=== PATIENT | male | born 1980 | race Two or more races ===

== ENCOUNTER 2021-03-10 11:58 | Outpatient (REF) | payer MEDICAID, OTHER, SELFPAY ==
--- NOTE | ~2021-03-10 | XR_ITS ---
EXAMINATION: XR KNEE, RIGHT CLINICAL INFORMATION: Right knee pain, effusion. COMPARISON: None TECHNIQUE: Four views of the right knee. FINDINGS: The tricompartment joint space is maintained normal. There is moderate suprapatellar joint effusion. No acute fracture, dislocation seen. There are no loose bodies. XR/XR knee RT 4V IMPRESSION: Moderate suprapatellar joint effusion. Otherwise unremarkable right knee exam.
== END 2021-03-10 11:59 | disposition home or self-care (01) ==
LOC: HO.XRAY 11:58
PROVIDERS: PCP Nurse Practitioner; Visit Provider Student in an Organized Health Care Education/Training Program
DX: M25.461 Effusion, right knee (principal)
CPT/HCPCS: 73564

== ENCOUNTER 2022-06-21 15:15 | Outpatient (REF) | payer MEDICAID, OTHER, SELFPAY ==
--- NOTE | ~2022-06-21 | XR_ITS ---
EXAMINATION: XR HIP, RIGHT CLINICAL INFORMATION: Right hip pain COMPARISON: None TECHNIQUE: 3 views of the right hip. FINDINGS: Normal bony mineralization. No fracture, dislocation, destructive process, or hip arthropathy. No erosive changes or visible chondrocalcinosis. XR/XR hip RT min 2V IMPRESSION: Unremarkable right hip.
== END 2022-06-21 15:16 | disposition home or self-care (01) ==
LOC: HO.XRAY 15:15
PROVIDERS: PCP Family Medicine; Visit Provider Family Medicine
DX: M25.561 Pain in right knee (principal)
CPT/HCPCS: 73502

== ENCOUNTER 2022-06-22 11:58 | Outpatient (REF) | payer MEDICAID, OTHER, SELFPAY ==
--- NOTE | ~2022-06-22 | XR_ITS ---
EXAMINATION: XR KNEE, RIGHT CLINICAL INFORMATION: Chronic pain COMPARISON: 03/10/2021 TECHNIQUE: Three views of the right knee. This includes upright AP and lateral views. FINDINGS: No acute fracture or subluxation. Compartmental joint spaces are maintained. Small joint effusion. The soft tissues are unremarkable. XR/XR knee RT 3V IMPRESSION: Small joint effusion. Otherwise unremarkable appearance of the right knee.
--- NOTE | ~2022-06-22 | XR_ITS ---
EXAMINATION: XR SHOULDER, RIGHT CLINICAL INFORMATION: Chronic pain COMPARISON: None TECHNIQUE: Four views of the right shoulder. FINDINGS: No fracture or dislocation. The glenohumeral joint is well aligned. The joint space is maintained. The acromioclavicular joint is intact. The visualized lung is clear. The visualized ribs are intact. XR/XR shoulder RT min 2V IMPRESSION: Normal right shoulder.
--- NOTE | ~2022-06-22 | XR_ITS ---
EXAMINATION: XR HIP, RIGHT CLINICAL INFORMATION: Chronic pain COMPARISON: 06/21/2022 TECHNIQUE: Two views of the right hip. FINDINGS: No fracture or dislocation. The hip is well aligned. The joint space is maintained. The visualized right hemipelvis is intact. Normal bowel gas pattern. XR/XR hip RT min 2V IMPRESSION: Normal right hip.
== END 2022-06-22 11:59 | disposition home or self-care (01) ==
LOC: HO.XRAY 11:58
PROVIDERS: PCP Family Medicine; Visit Provider Family Medicine
DX: M25.561 Pain in right knee (principal); M25.551 Pain in right hip; M25.511 Pain in right shoulder; G89.29 Other chronic pain
CPT/HCPCS: 73030; 73502; 73562

== ENCOUNTER 2024-02-18 08:09 | Outpatient (REF) | payer MEDICAID, OTHER, SELFPAY ==
[2024-02-18 12:19] LABS: Estimated Average Glucose 100 mg/dL; Hemoglobin A1c % 5.1 % (<6.0)
[2024-02-18 12:38] LABS: HBS Num1 0.48 mIU/mL (0-7.99); HBc Num1 0.13 S/CO (0.00-0.79); Hepatitis A Antibody IgM 0.33 Index (0-0.79); Hepatitis B Core Antibody Nonreactive (Nonreactive); Hepatitis B Surface Antigen Negative (Negative); ~HepC Num1 0.11 S/CO (0.00-0.79); ~Hepatitis A Antibody IgM Nonreactive (Nonreactive); ~Hepatitis B Surface Antibody NONREACTIVE (Nonreactive); ~Hepatitis C Antibody Nonreactive (Nonreactive)
[2024-02-18 12:45] LABS: Alanine Aminotransferase 26 U/L (0-40); Albumin Level 4.4 g/dL (3.5-5.0); Alkaline Phosphatase 75 U/L (39-117); Anion Gap 9 (12-20); Aspartate Amino Transferase 20 U/L (5-37); Bilirubin Total 0.5 mg/dL (0.0-1.0); Blood Urea Nitrogen 19 mg/dL (9-16); Calcium 9.1 mg/dL (8.4-10.2); Carbon Dioxide 28 mmol/L (22-29); Chloride 104 mmol/L (96-108); Cholesterol 198 mg/dL (<200); Estimated Glomerular Filt Rate > 60; Glucose Random 100 mg/dL (60-115); HDL Cholesterol 47 mg/dL (>40); LDL Cholesterol Calculated 117 mg/dL (<100); Potassium 4.4 mmol/L (3.3-5.1); Sodium 137 mmol/L (135-145); TSH reflex Free T4 4.53 uIU/mL (0.32-4.0); Total Protein 7.8 g/dL (6.5-8.0); Triglycerides 174 mg/dL (<150)
[2024-02-18 13:25] LABS: Free T4 (Free Thyroxine) 0.95 ng/dL (0.71-1.85)
[2024-02-19 14:39] LABS: Follicle Stimulating Hormone 2.9 mIU/mL (1.4-12.8); Lutenizing Hormone 4.2 mIU/mL (1.5-9.3)
== END 2024-02-18 08:10 | disposition home or self-care (01) ==
LOC: HO.HHCL 08:09
PROVIDERS: Visit Provider Registered Nurse
DX: N52.9 Male erectile dysfunction, unspecified (principal); E78.2 Mixed hyperlipidemia
CPT/HCPCS: 36415; 80053; 80061; 83001; 83002; 83036; 84146; 84402; 84403; 84439; 84443; 86704; 86706; 86709; 86803; 87340

== ENCOUNTER 2024-06-15 08:11 | Outpatient (REF) | payer MEDICAID, OTHER, SELFPAY ==
[2024-06-15 12:25] LABS: Prostate Specific Antigen 0.54 ng/mL (<0.05-4.0)
[2024-06-15 12:31] LABS: Free T4 (Free Thyroxine) 0.84 ng/dL (0.71-1.85); TSH reflex Free T4 3.07 uIU/mL (0.32-4.0); Thyroid Stimulating Hormone 3.07 uIU/mL (0.32-4.0)
[2024-06-16 13:07] LABS: Thyroglobulin Antibodies <1 IU/mL (< or = 1)
[2024-06-19 17:53] LABS: Testosterone, Total 335 ng/dL (250-1100)
== END 2024-06-15 08:12 | disposition home or self-care (01) ==
LOC: HO.HHCL 08:11
PROVIDERS: Visit Provider Registered Nurse
DX: R79.89 Other specified abnormal findings of blood chemistry (principal); E03.8 Other specified hypothyroidism; N52.9 Male erectile dysfunction, unspecified
CPT/HCPCS: 36415; 84153; 84403; 84439; 84443; 86800

== ENCOUNTER 2024-06-23 06:15 | Outpatient (REF) | payer MEDICAID, OTHER, SELFPAY ==
--- NOTE | 2024-06-23 | EMG_ITS ---
Right median and ulnar motor and sensory studies were performed. Right radial and median and lateral antecubital brachial sensory studies were performed, and paraspinal muscles were tested with a needle. IMPRESSION: Mild to moderate right median neuropathy across carpal tunnel. MD ANGELICA Pierre/MARCUS / [phone]
== END 2024-06-23 06:16 | disposition home or self-care (01) ==
LOC: HO.NEURO 06:15
PROVIDERS: PCP Family Medicine; Visit Provider Registered Nurse
DX: R20.0 Anesthesia of skin (principal); R20.2 Paresthesia of skin
CPT/HCPCS: 95886; 95910

== ENCOUNTER 2024-10-01 10:55 | Outpatient (REF) | payer MEDICAID, OTHER, SELFPAY ==
--- NOTE | ~2024-10-01 | XR_ITS ---
EXAMINATION: XR HAND, RIGHT CLINICAL INFORMATION: PAIN COMPARISON: None available. TECHNIQUE: PA, lateral, and oblique views of the right hand. FINDINGS: No fracture, dislocation, or suspicious bone lesion. Normal bone mineralization. Normal alignment. Joint spaces are preserved. No significant arthropathy. Soft tissues appear normal. XR/XR hand RT min 3V IMPRESSION: Normal right hand. Electronically signed by: Noah Santamaria MD 10/01/2024 12:43 PM EDT
--- OUTSIDE RECORDS SUMMARY | 2024-10-01 14:28 | XMS_ITS | Encounter Summary ---
Author Organization [employer] Address [address] [place] [address] [address] [place] [address] Care Team Providers Care Flight Engineer Instructor Name Role Phone Gracie Pizarro Primary Care Provider Encounter Details Date Type Department Care Team (Late st Contact Info) Description 09/24/2022 Abstract [facility] [address] [place] [address] Doron Lino DDS [address] [place], [place] [phone] Social History Tobacco Use Types Packs/Day Years Used Date Smoking Tobacco: Some Days Cigars Passive Smoke Exposure: Current Smokeless Tobacco: Never Alcohol Use Standard Drinks/Week Comments Never 0 (1 standard drink = 0.6 oz pur e alcohol) Sex and Gender Information Value Date Recorded Sex Assigned at Male 05/07/2022 10:39 AM EDT Legal Sex Male 10:39 AM EDT Gender Identity Male 05/07/2022 10:39 AM EDT Sexual Orientation Straight 05/07/2022 10 :39 AM EDT COVID-19 Exposure Response Date Recorded In the last 10 days, have yo u been in contact with someone who was confirmed or suspected to have Coronavirus/COVID-19? No / Unsure 09/21/2022 1:28 PM EDT documented as of this encounter Plan of Treatment Upcoming Encounters Date Type Department Care Team (Late Contact Info) Description 10/23/2024 9:00 AM EDT Office Visit [facility] [address] [place], [place] [phone] Gracie Pizarro PLANT PROTECTION GUARD [address] [place] [address] documented as of this encounter Visit Diagnoses Not on filedocumented in this encounter Care Teams Flight Engineer Instructor Relationship Specialty Start Date End Date Gracie Pizarro FNP [address] [place] [id number] PCP - General Family Medicine 03/02/22 documented as of this encounter
--- OUTSIDE RECORDS SUMMARY | 2024-10-01 14:28 | XMS_ITS | Clinical Summary ---
Author Organization [facility] Address [address] [place] [address] Care Team Providers Care Emergency Vehicle Operations Instructor Name Role Phone Farrah Santana Primary Care Provider [phone] Allergies No known active allergies Medications No known medications Active Problems No known active problems Social History Tobacco Use Types Packs/Day Years Used Date Smoking Tobacco: Never Assessed Sex and Gender Information Value Date Recorded Sex Assigned at Male 06/23/2024 11:52 AM EST Legal Sex Male 9:46 AM EDT Gender Identity Male 06/23/2024 11:52 AM EST Sexual Orientation Not on file Plan of Treatment Upcoming Encounters Date Type Department Care Team (Late st Contact Info) Description 12/10/2024 2:00 PM EDT Office Visit [facility] [address] [place] [address] Lead Etl Developer: Claudio Bailey NP [address] [place] [address] Health Maintenance Due Date Last Done Comments HIV Screening 1980 Hepatitis C Screening 1980 Varicella Vaccines (1 of 2 - 13+ 2-dose series) 12/12/1992 Hepatitis B Vaccines (1 of 3 - 19+ 3-dose series) 12/12/1998 COVID-19 Vaccine (2023-2 5 season) 2024 Influenza Vaccine (#1) 2024 Alcohol/Substance Use Screening 07/08/2024 Depression Screening and Follow-Up 07/08/2024 Social Drivers of Health Velma ual Screening 07/08/2024 DTaP,Tdap,and Td Vaccines (2 - Td or Tdap) 09/03/2032 09/03/2022 RSV Vaccine (60+ years old a nd patients) (1 - 1-dose 75+ series) 12/12/2054 Pneumococcal Vaccine: Pediat donn (0-5 Years) and At-Risk Patients (6-50 Years) Aged Out No longer eligible b ased on patient's age to complete this topic Insurance [facility] HSNO/FREE CARE Care Teams Emergency Vehicle Operations Instructor Relationship Specialty Start Date End Date Farrah Santana [address] [place] [id number] PCP - General Family Medicine 03/22/21
--- OUTSIDE RECORDS SUMMARY | 2024-10-01 14:28 | XMS_ITS | Encounter Summary ---
Author Organization [employer] Address [address] [place] [address] Care Team Providers Care Medical Oncology Physician Name Role Phone Gracie Pizarro DIRECTOR SOCIAL WELFARE Primary Care Provider [phone] Encounter Details Date Type Department Care Team ([facility] st Contact Info) Description 10/01/2024 9:25 AM EDT Nurse Only [facility] [address] [place] [phone] Lorna Moore LPN Encounter for immunization (Primary Dx) Social History Tobacco Use Types Packs/Day Years Used Date Smoking Tobacco: Some Days Cigars Passive Smoke Exposure: Current Smokeless Tobacco: Never Alcohol Use Standard Drinks/Week Comments Never 0 (1 standard drink = 0.6 oz pur e alcohol) Depression Answer Date Recorded Patient Health Questionnaire-9 Score 0 06/08/2024 Patient Health Questionnaire-9 Score 0 06/08/2024 Last PHQ-9: Questionnaire Data Not on file 1 08/09/2023 Housing Stability Answer Date Recorded What is your housing situation today? I have melanie yepez 12/18/[address] you li ve. Do you have problems with any of the following? None of the above 12/18/2023 Food Insecurity Answer Date Recorded Within the past 12 months, y ou worried that your food would run out before you got money to buy more: Never True 12/18/2023 Within the past 12 months,th e food you bought just didn't last and you didn't have enough money to get more: Never True 06/2024 Transportation Answer Date Recorded In the past 12 months, has l ack of transportation kept you from medical appts, meetings, work or from getting things needed for daily living? No 12/18/2023 Utilities Answer Date Recorded In the past 12 months, has t he electric, gas, oil or water company threatened to shut off services in your home? No 12/18/2023 Depression Answer Date Recorded Patient Health Questionnaire-2 Score 0 06/08/2024 Sex and Gender Information Value Date Recorded Sex Assigned at Male 05/07/2022 10:39 AM EDT Legal Sex Male 10:39 AM EDT Gender Identity Male 05/07/2022 10:39 AM EDT Sexual Orientation Straight 05/07/2022 10 :39 AM EDT documented as of this encounter Progress Notes * Lorna Moore LPN - 10/01/2024 9:25 AM EDT Subjective Patient ID: Ty Bertrand is a 43 y.o. male who presentsPt here for 3rd , of 3 dose series, Engerix, Hepatitis B, Vaccine. Patient history and self attestation indicate no contraindication to vaccination. Pt advised of possible side effects of vaccine including fever, headache and fatigue and advised to stay for 15 minutes monitoring post-vaccine. Pt states understanding and agrees to vaccination. documented in this encounter Plan of Treatment Upcoming Encounters Date Type Department Care Team (Late st Contact Info) Description 10/23/2024 9:00 AM EDT Office Visit [facility] [address] [place] [address] Gracie Pizarro FNP [address] [place] [address] documented as of this encounter Visit Diagnoses Diagnosis Encounter for immunization- Primary documented in this encounter Additional Health Concerns Assessment Noted Time PHQ-9 Depression Total Score: 0 06/08/20 24 10:11 AM EST documented as of this encounter Care Teams Medical Oncology Physician Relationship Specialty Start Date End Date Gracie Pizarro FNP [address] [place] [address] PCP - General Family Medicine 03/02/22 documented as of this encounter
--- OUTSIDE RECORDS SUMMARY | 2024-10-01 14:28 | XMS_ITS | Referral Summary ---
Author Organization [facility] Address [address] [place] [address] Care Team Providers Care Disk Recoater Name Role Phone Farrah Santana Primary Care Provider [phone] Allergies No known active allergies Medications No [...] Description 12/10/2024 2:00 PM EDT Office Visit [facility] [address] [place] [address] Order Control Clerk Blood Bank: Lenora Westbrook, Claudio Abraham NP [address] [place] [address] [facility] Care Teams Disk Recoater Relationship Specialty Start Date End Date Farrah Santana [address] [place] [phone] PCP - General Family Medicine 03/22/21
--- OUTSIDE RECORDS SUMMARY | 2024-10-01 14:28 | XMS_ITS | Encounter Summary ---
Author Organization [employer] Address [address] [place] [address] Care Team Providers Care Medical Office Coordinator Name Role Phone Gracie Pizarro MANAGER CALL CENTER Primary Care Provider [phone] Reason for Visit * Reason Comments Hand Pain Encounter Details Date Type Department Care Team ([facility] st Contact Info) Description 10/01/2024 10:40 AM EDT Office Visit [facility] [address] [place], [place] [phone] Breezy Hdz MD [address] [place], [place] [phone] Chronic pain of right thumb (Primary Dx) Social History Tobacco Use Types [...] AM EDT documented as of this encounter Last Filed Vital Signs Vital Sign Reading Time Taken Comments Blood Pressure 116/75 10/01/2024 10:06 AM EDT Pulse 69 10/01/2024 10:06 AM EDT Temperature 36.8 ??C (98.2 ??F) 10/01/2024 10:06 AM E DT Respiratory Rate 16 10/01/2024 10:06 AM EDT Oxygen Saturation 98% 10/01/2024 10:06 AM EDT Inhaled Oxygen Concentration - - Weight 74.8 kg (165 lb) 10/01/2024 10:06 AM EDT Height - - Body Mass Index 30.97 06/08/2024 10:06 AM EST documented in this encounter Progress Notes * Breezy Hdz MD - 10/01/2024 10:40 AM EDT Subjective History was provided by the patient. Ty Bertrand is a 43 y.o. 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 He is right-hand dominant. Pain is mostly in the thumb and 1st metacarpal area. Denies F/C. Objective Vitals: 10/01/24 1006 BP: 116/75 BP Location: Left arm Patient Position: Sitting BP Cuff Size: Adult Pulse: 69 Resp: 16 Temp: 98.2 ??F (36.8 ??C) TempSrc: Temporal SpO2: 98% Weight: 165 lb (74.8 kg) Physical Exam Vitals reviewed. Constitutional: Appearance: Normal appearance. HENT: Head: Normocephalic and atraumatic. Right Ear: External ear normal. Left Ear: External ear normal. Nose: Nose normal. Mouth/Throat: Pharynx: Oropharynx is clear. Eyes: Extraocular Movements: Extraocular movements intact. Conjunctiva/sclera: Conjunctivae normal. Pulmonary: Effort: Pulmonary effort is normal. Musculoskeletal: General: Tenderness present. No swelling, deformity or signs of injury. Normal range of motion. Cervical back: Neck supple. Comments: Tenderness of the right thumb and first metacarpal in the palmar aspect; no wrist involvement; negative Omar test Skin: General: Skin is warm and dry. Neurological: Mental Status: He is alert and oriented to person, place, and time. Psychiatric: Mood and Affect: Mood normal. Behavior: Behavior normal. Thought Content: Thought content normal. Judgment: Judgment normal. Ty was seen today for hand pain. Diagnoses and all orders for this visit: Chronic pain of right thumb (Primary) - XR Hand 3+ Views Right; Future - predniSONE (Deltasone) 20 MG tablet; Take 2 tablets (40 mg) by mouth Once per day for 5 days. Patient presents to [facility] due to non-traumatic right thumb pain Works in construction No wrist involvement; negative Omar Suspect flexor tendinitis No deformity noted No clinical evidence of CTS No atrophy of thenar eminence Will check X-ray Discussed Rx Prednisone 40mg daily for 5 days Potential adverse effects of the medication reviewed Indications for UC/ER use reviewed Advised to contact the clinic if persistent or worsening symptoms documented in this encounter Plan of Treatment Upcoming Encounters Date Type Department Care Team (Late st Contact Info) Description 10/23/2024 9:00 AM EDT Office Visit [facility] [address] [place], [place] [phone] [place] F[place] [address] [place], [place] [phone] documented as of this encounter Procedures Procedure Name Priority Date/Time Associated Diagnosis Comments XR HAND 3+ VIEWS RIGHT Routine 10/01/2024 10:56 AM EDT Chronic pain of right thumb documented in this encounter Results * XR Hand 3+ Views Right (10/01/2024 10:56 AM EDT) Anatomical Region Laterality Modality Upper Extremities, Hand Right Radiogra phic Imaging 10/01/2024 10:5 6 AM EDT Narrative 10/01/2024 12:46 PM EDT ?[facility] ?[address] ?[place] [address] ?XRay Report ? Signed ? Patient: Ty Henson ?MR#: [id number] ?? [id number] ? : 1980 ?Acct:[id number] ? Age/Sex: 43 / M ?ADM Date: 10/01/24 ? Loc: HO.HHCX ? Attending Dr: Breezy Hdz MD ? Ordering Physician: Breezy Hdz MD ?? Date of Service: 10/01/24 ?? Procedure(s): XR hand RT min 3V ?? Accession Number(s): [id number] ? cc: Breezy Hdz MD ? EXAMINATION: ?? XR HAND, RIGHT ? CLINICAL INFORMATION: ?? PAIN ? COMPARISON: ?? None available. ? TECHNIQUE: ?? PA, lateral, and oblique views of the right hand. ? FINDINGS: ?? No fracture, dislocation, or suspicious bone lesion. Normal bone ?? mineralization. ?? Normal alignment. ?? Joint spaces are preserved. No significant arthropathy. ? Soft tissues appear normal. ? XR/XR hand RT min 3V ?? IMPRESSION: ?? Normal right hand. ? Electronically signed by: ??Noah Santamaria MD ??10/01/2024 12:43 PM EDT RP ? Dictated By: ?Noah Santamaria MD ? Signed By: ?<Electronically signed by Noah Santamaria MD in OV> ?10/01/24 1243 ? DD/ 1056 ? TD/TT: 10/01/24 1100 ? Interventional Technologist: ? Procedure Note Davian Patino - 10/01/2024 [facility] [address] [place] [address] XRay Report Signed Patient: Haley Henson#: [id number] : 1980Acct:[id number] Age/Sex: 43 / MADM Date: 10/01/24 Loc: HO.HHCX Attending Dr: Breezy Hdz MD Ordering Physician: Breezy Hdz MD Date of Service: 10/01/24 Procedure(s): XR hand RT min 3V Accession Number(s): [id number] cc: Breezy Hdz MD EXAMINATION: XR HAND, RIGHT CLINICAL INFORMATION: PAIN COMPARISON: None available. TECHNIQUE: PA, lateral, and oblique views of the right hand. FINDINGS: No fracture, dislocation, or suspicious bone lesion. Normal bone mineralization. Normal alignment. Joint spaces are preserved. No significant arthropathy. Soft tissues appear normal. XR/XR hand RT min 3V IMPRESSION: Normal right hand. Electronically signed by: Noah Santamaria MD 10/01/2024 12:43 PM EDT Dictated By: Noah Santamaria MD Signed By: <Electronically signed by Noah Santamaria MD in OV> 10/01/24 1243 DD/ 1056 TD/TT: 10/01/24 1100 Interventional Technologist: Breezy Hdz MD IMG XR PROCEDURES Final Result documented in this encounter Visit Diagnoses Diagnosis Chronic pain of right thumb- Primary documented in this encounter Additional Health Concerns Assessment Noted Time PHQ-9 Depression Total Score: 0 06/08/20 24 10:11 AM EST documented as of this encounter Care Teams Medical Office Coordinator Relationship Specialty Start Date End Date [place] F[place] [address] [place] [address] PCP - General Family Medicine 03/02/22 documented as of this encounter
--- OUTSIDE RECORDS SUMMARY | 2024-10-01 14:28 | XMS_ITS | Clinical Summary ---
Author Organization [employer] Address [address] [place] [address] [address] [place] [address] Care Team Providers Care Senior Maintenance Mechanic Name Role Phone Gracie Pizarro [facility] Primary Care Provider [phone] Allergies No known active allergies Medications Diclofenac Sodium 1 % gel Apply 2 g topically every 6 (six) hours. 1 Active amoxicillin (Amoxil) 500 MG capsuleIndicatio ns:Dental calculus,Dental abscess,Halitosi s Take 1 capsule (500 mg) by mouth every 8 (eight) hours. 30 capsule 3 Active Additional Information Patient not taking.Reported on 06/08/2024 sildenafil (Viagra) 100 MG tabletIndication s:Erectile dysfunction, unspecified erectile dysfunction type Take 1 tablet (100 mg) by mouth if needed each day for erectile dysfunction. 30 tablet 2 4 02/14/20 25 Active predniSONE (Deltasone) 20 MG tabletIndication s:Chronic pain of right thumb Take 2 tablets (40 mg) by mouth Once per day for 5 days. 10 tablet 5 10/07/19 25 Active Active Problems Problem Noted Date Diagnosed Date Hyperlipidemia 09/03/2022 Overview (09/03/2022): ?? ASCVD: 2.2% 07/2022, statin therapy not indicated Assessment & Plan (09/03/2022 2:45 PM EST): ?? Encouraged lifestyle recommendations ?? Will continue to monitor Periodontal disease 08/31/2022 Erectile dysfunction 05/02/2021 Overview (09/03/2022): ?? Erectile dysfunction x 1 year; difficulty achieving and sustaining erection during intercourse. Wakes with morning erection. ?? Labs- testosterone, a1c, TSH all WNL ?? Sildenafil 50mg Assessment & Plan (09/03/2022 2:52 PM EST): ?? Continue current sildenafil use ?? Contact [facility] if sx no longer respond to treatment. Will plan referral to urology at this time Resolved Problems Problem Noted Date Diagnosed Date Resolved Date Dental calculus 08/31/2022 09/03/2022 Gingival bleeding 08/31/2022 09/03/2022 Halitosis 08/31/2022 09/03/2022 Acute gingival inflammation 08/31/2022 09/03/2022 Dental abscess 08/31/2022 09/03/2022 Multiple joint pain 06/21/2022 09/03/19 Assessment & Plan (06/21/2022 2:22 PM EST): Patient with R sided shoulder internal rotation pain, normal passive & active ROM. R SI joint dysfunction, + FADIR/+CASANDRA, neg SLR R knee with lateral small effusion and tenderness in lateral joint line, stable knee, + crepitus Xray sents Recommended RICE RX diclofenac RTC with PCP if no improvement Chronic pain of right knee 05/02/2021 0 09/03/2022 Encounters Date Type Department Care Team Description 10/01/2024 10:40 AM EDT Office Visit [facility] [address] [place] [id number] Breezy Hdz MD Chronic pain of right thumb (Primary Dx) 10/01/2024 9:25 AM EDT Nurse Only [facility] [address] [place] [address] [phone] Lorna Moore LPN Encounter for immunization (Primary Dx) from Last 3 Months Immunizations Name Administration Dates Next Due Hep B, adult 10/01/2024,05/04/2024,04/02/2024 Tdap 09/03/2022 Family History Medical History Relation Name Comments Hereditary non-polyposis colon cancer Neg Hx Social History Tobacco Use Types Packs/Day Years Used Date Smoking Tobacco: Some Days Cigars Passive Smoke Exposure: Current Smokeless Tobacco: Never Tobacco Cessation:Ready to Q uit: Not Asked; Counseling Given: Not Answered Alcohol Use Standard Drinks/Week Comments Never 0 [...] Orientation Straight 05/07/2022 10 :39 AM EDT Last Filed Vital Signs Vital Sign Reading Time Taken Comments Blood Pressure 116/75 10/01/2024 10:06 AM EDT Pulse 69 10/01/2024 10:06 AM EDT Temperature 36.8 ??C (98.2 ??F) 10/01/2024 10:06 AM E DT Respiratory Rate 16 10/01/2024 10:06 AM EDT Oxygen Saturation 98% 10/01/2024 10:06 AM EDT Inhaled Oxygen Concentration - - Weight 74.8 kg (165 lb) 10/01/2024 10:06 AM EDT Height 155.4 cm (5' 1.2 ) 06/08/2024 10:06 AM ES T Body Mass Index 30.97 06/08/2024 10:06 AM EST Plan of Treatment Upcoming Encounters Date Type Department Care Team (Late st Contact Info) Description 10/23/2024 9:00 AM EDT Office Visit [facility] [address] [place] [address] [place], [place], [facility] [address] [place] [address] Health Maintenance Due Date Last Done Comments Family Planning (PISQ) 12/12/1994 Pneumococcal Vaccine: Pediatrics (0 to 5 Years) and At-Risk Patients (6 to 49) Years) (1 of 2 - PCV) 12/12/1998 Dental Oral Exam 02/01/2023 08/03/2022 Dental Prophylaxis 03/01/2023 08/31/2022 Dental X-Ray: Bitewings 08/04/2023 08/03/2022 COVID-19 Vaccine ( - 2023-2 5 season) 2024 Influenza Vaccine (#1) 2024 Alcohol/Substance Use Screening 12/17/2024 12/18/2023 SDOH Screening 12/17/2024 12/18/2023 Depression Screening 06/08/2025 06/08/2024, 06/08/2024 Tobacco Screening 06/16/2025 06/16/2024 Dental X-Ray: Full Mouth 08/04/2025 08/03/2022 Lipid Panel 02/17/2029 02/18/2024, 07/18/2022, 05/02/2021 Zoster Vaccines (1 of 2) 12/12/2029 DTaP/Tdap/Td Vaccines (2 - T d or Tdap) 09/03/2032 09/03/2022 RSV Patients and Patients Aged 60 years or older (1 - 1-dose 75+ series) 12/12/2054 HIV Screening Completed 05/02/2021 Hepatitis C Screening Completed 02/18/2024 , 05/02/2021 Hepatitis B Vaccines Completed 10/01/2024, 05/04/2024, 04/02/2024 HIB Vaccines Aged Out No longer eligi ble based on patient's age to complete this topic HPV Vaccines Aged Out No longer eligi ble based on patient's age to complete this topic Hepatitis A Vaccines Aged Out No long er eligible based on patient's age to complete this topic IPV Vaccines Aged Out No longer eligi ble based on patient's age to complete this topic Meningococcal Vaccine Aged Out No ilda kate eligible based on patient's age to complete this topic RSV under 20 months Aged Out No longe r eligible based on patient's age to complete this topic Rotavirus Vaccines Aged Out No longer eligible based on patient's age to complete this topic Procedures Procedure Name Priority Date/Time Associated Diagnosis Comments XR HAND 3+ VIEWS RIGHT Routine 10/01/2024 10:56 AM EDT Chronic pain of right thumb HEPATITIS PANEL, GENERAL Routine 02/18/2024 8:12 AM EDT Erectile dysfunction, unspecified erectile dysfunction type LIPID PANEL, STANDARD Routine 02/18/2024 8:02 AM EDT Moderate mixed hyperlipidemia not requiring statin therapy PROPHYLAXIS - ADULT Routine 08/31/2022 2 :00 PM EST Periodontitis Dental calculus Gingival bleeding Halitosis Acute gingival inflammation Retained deciduous tooth INTRAORAL - COMPLETE SERIES OF RADIOGRAPHIC IMAGES Routine 08/03/2022 8:00 AM EST COMPREHENSIVE ORAL EVALUATION - NEW OR ESTABLISHED PATIENT Routine 08/03/2022 8:00 AM EST HIV 1/2 ANTIGEN/ANTIBODY, FOURTH GENERATION W/RFL Routine 05/02/2021 10:27 AM EDT from Last 3 Months or Most Recently Relevant to Health Maintenance Results * XR Hand 3+ Views Right (10/01/2024 10:56 AM EDT) Anatomical Region Laterality Modality Upper Extremities, Hand Right Radiogra phic Imaging 10/01/2024 10:5 6 AM EDT Narrative 10/01/2024 12:46 PM EDT ?[facility] ?[address] ?[place] [address] ?XRay Report ? Signed ? Patient: Clemens Elza,Ty ?MR#: [id number] ?? [id number] ? : 1980 ?Acct:[id number] ? Age/Sex: 43 / M ?ADM Date: 10/01/24 ? Loc: HO.HHCX ? Attending Dr: Breezy Hdz MD ? Ordering Physician: Breezy Hdz MD ?? Date of Service: 10/01/24 ?? Procedure(s): XR hand RT min 3V ?? Accession Number(s): [id number] ? cc: Breezy Hdz MD ? EXAMINATION: [...] DD/ 1056 ? TD/TT: 10/01/24 1100 ? Plastic Outfitter: ? Procedure Note Sukumar, Davian - 10/01/[address] [address] XRay Report Signed Patient: Haley Henson#: [id number] : 1980Acct:[id number] Age/Sex: 43 / MADM Date: 10/01/24 Loc: HO.HHCX Attending Dr: Breezy Hdz MD Ordering Physician: Breezy Hdz MD Date of Service: 10/01/24 Procedure(s): XR hand RT min 3V Accession Number(s): [id number] cc: Breezy Hdz MD EXAMINATION: XR HAND, [...] 10/01/24 1243 DD/ 1056 TD/TT: 10/01/24 1100 Plastic Outfitter: Breezy Hdz MD IMG XR PROCEDURES Final Result * Hepatitis Panel, General (02/18/2024 8:12 AM EDT) Hepatitis A IgM Nonreactive Nonreactive [facility] Comment:IgM antibodies to CHAKRABORTY V not detected; does not exclude earlyacute or recovered HAV infection. ~Hepatitis B Surface Antibody NONREACTIVE Nonreactive [facility] Comment:Nonreactive: < 8.00 mIU/mL Hepatitis B Core Antibody Nonreactive Nonreactive [facility] Hepatitis C Antibody Nonreactive Nonreactive [facility] Comment:Antibodies to HCV no t detected; does not exclude early acuteHCV infection. Hepatitis B Surface Ag Negative Negative [facility] Blood 02/18/2024 8:12 AM EDT 02/18/2024 11:26 AM EDT [facility] SEAT SCOOPER MACHINE LAB BLOOD ORDERABLES Final Re sult [facility] [address] [place] [address] [phone] * (ABNORMAL) Lipid Panel, Standard (02/18/2024 8:02 AM EDT) Triglycerides 174(H) <150 mg/dL [facility] Comment:Desirable Triglyceri de: less than 150 mg/dLBorderline High Triglyceride 150-199 mg/dLHigh Triglyceride: 200-499 mg/dLVery High Triglyceride: greater than or equal to 5OO mg/dL Cholesterol 198 <200 mg/dL [facility] Comment:Desirable Cholestero l: less than 200 mg/dLBorderline High Cholesterol: 200-239 mg/dLHigh Cholesterol: greater than 239 mg/dL LDL Cholesterol Calculated 117(H) <100 mg/dL [facility] Comment:Desirable LDL: less than 100 mg/dLNear Optimal/Above Optimal LDL: 110- 129 mg/dLBorderline High LDL: 130-159 mg/dLHigh LDL: 160-189 mg/dLVery High LDL: greater than or equal to 190 mg/dL HDL Cholesterol 47 >40 mg/dL [facility] Comment:Desirable HDL: great er than 40 mg/dL Note: This HDL assay may give artificially low results in patients with liver disease. Blood Venous blood specimen / Unknown 02/18/2024 8:02 AM EDT 02/18/2024 11:26 AM EDT [facility] SEAT SCOOPER MACHINE LAB BLOOD ORDERABLES Final Re sult [facility] [address], [place] [phone] * HIV 1/2 ANTIGEN/ANTIBODY,FOURTH GENERATION W/RFL (05/02/2021 10:27 AM EDT) HIV-1/2 ANTIGEN AND ANTIBODIES, 4TH GENERATION W/ REFLEX NON-REACT VICKI NON-REACT VICKI [facility] Comment: HIV-1 antigen and HIV-1/HIV-2 antibodies were not detected. There is no laboratory evidence of HIV infection. ?? PLEASE NOTE: This information has been disclosed to you from records whose confidentiality may be protected by state law. ??If your state requires such protection, then the state law prohibits you from making any further disclosure of the information without the specific written consent of the person to whom it pertains, or as otherwise permitted by law. A general authorization for the release of medical or other information is NOT sufficient for this purpose. ? For additional information please refer to http://education.questdiagnAtraverdas.Q Design/faq/SBZ464 (This link is being provided for informational/ educational purposes only.) ? The performance of this assay has not been clinically validated in patients less than 2 years old. ?? 05/02/2021 10:2 7 AM EDT us Miroslava Schmitz COST ACCOUNTING CLERK LAB BLOOD ORDERABLES Final Resu lt [facility] [address] from Last 3 Months or Most Recently Relevant to Health Maintenance Insurance [facility] FULL DENTAL-[facility] [employer] [facility] ADULT DENTAL - HSN FULL (MEDICAID) Care Teams Senior Maintenance Mechanic Relationship Specialty Start Date End Date Gracie Pizarro [place] [address] PCP - General Family Medicine 03/02/22
== END 2024-10-01 10:56 | disposition home or self-care (01) ==
LOC: HO.HHCX 10:55
PROVIDERS: Visit Provider Family Medicine
DX: M79.644 Pain in right finger(s) (principal); G89.29 Other chronic pain
CPT/HCPCS: 73130

== ENCOUNTER → 2024-10-01 10:56 | Outpatient (BNV) | payer MEDICAID, SELFPAY | PROVIDERS: Visit Provider Radiology Diagnostic Radiology | DX: M79.641 Pain in right hand (principal) | CPT/HCPCS: 73130 ==

== ENCOUNTER 2024-11-22 08:41 | Emergency (ER) | payer MEDICAID, OTHER, SELFPAY ==
[2024-11-22 08:42] VITALS: BP 128/62; PULSE 66; RESP 18; TEMP 36.2; O2SAT 97; BMI 39.2
--- NOTE | 2024-11-22 09:15 | ED.EYEPROB ---
HPI - Eye Problem General Chief complaint: Eye Problems Stated complaint: something in right eye Time Seen by Provider: 11/22/24 09:13 Source: patient Mode of arrival: ambulatory Limitations: no limitations History of Present Illness ED Provider: Opal Boone NP HPI Narrative: patient is a 43 year old male who presents emergency department for evaluation. He endorses pain and a foreign body sensation to the right lower outer eye over the past 3 days. He admits that prior to the onset he was doing some gardening, drilling into some concrete that had old metal present and believes that either piece of concrete or metal had come up and got stuck into his eye. He is having excessive tearing, and blurry vision to the right eye. Has associated photophobia. He denies any purulent discharge. Denies use of contact lenses. Denies any posterior eye pain or pressure, no headaches, no nausea, no vomiting. Reports tetanus vaccination being up-to-date within the past 5 years Related Data Previous Rx's ?Medication ?Instructions ?Recorded ofloxacin 0.3 % eye drops 2 drp ophthalmic (eye) QID #10 mL 11/22/24 Allergies Allergy/AdvReac Type Severity Reaction Status Date / Time No Known Allergies Allergy Verified 11/22/24 08:44 Review of Systems Review of Systems: Yes all other systems are reviewed and are negative PMFSH Past Medical History Attestation statement: The following information was validated with the patient. Source: old records reviewed Social History Social History Advance Directives: No Advance Directives Information Provided: Yes Physical Exam Vital Signs: Vital Signs: Last Vital Signs Temp 97.2 F 11/22/24 10:20 Pulse 66 11/22/24 10:20 Resp 18 11/22/24 10:20 BP 128/62 11/22/24 10:20 Pulse Ox 97 11/22/24 10:20 O2 Del Method Room Air 11/22/24 10:20 BMI result Body Mass Index 39.2 Appearance: Alert.?Oriented to person, place and time. No acute distress.?Normal affect. Eyes: Pupils equal, round and reactive to light.? EOMI. No nystagmus. Conjunctival erythema. Sclera injected. IOP: Left - 16.9, Right - 15.8. Visual acuity: Left - 20/40, Right - 20/70. Both 20/40. Fluorescein staining revealing fine area of uptake at 08:00. No chemosis. No hyphema. no visualized foreign body ENT: Pharynx normal.?? Neck: Normal inspection.? Neck supple.?? CVS: Heart sounds normal. Normal heart rate and rhythm.? Pulses normal.?? Respiratory: No respiratory distress.? Lung sounds clear to auscultation bilaterally?? Skin: Skin warm and dry.? Normal skin color.? Extremities: No lower extremity edema.? Neuro: Moves all extremities spontaneously. Sensation intact bilaterally. CN II-XII intact. No focal neuro deficits. Ambulates with normal steady gait. Medications Administered Discontinued Medications Generic Name Dose Route Start Last Admin Trade Name Tripq PRN Reason Stop Dose Admin Fluorescein Sodium 1 strip 11/22/24 09:19 11/22/24 09:53 Fluorescein Sodium Strip EYE-RIGHT 11/22/24 09:20 1 strip ONCE ONE Administration Tetracaine HCl 1 drop 11/22/24 09:19 11/22/24 09:53 Tetracaine Hcl/Pf 0.5% Oph Lexy 4 Ml Drops EYE-RIGHT 11/22/24 09:20 1 drop ONCE ONE Administration Medical Decision Making Medical Decision Making MDM Narrative: patient is a 43 old male who presents emergency department for evaluation of 3 days with right eye pain as per HPI, conjunctiva is erythematous sclera is injected, on fluorescein staining has uptake at 08:00 concerning for corneal abrasion. I do not see evidence of a retained foreign body despite lid eversion. No painful hordeolum or painless chalazion on examination. No subconjunctival hemorrhage. No associated unilateral headache, fixed pupil, associated vomiting, or increased intra-ocular pressure to suggest acute angle glaucoma. No periorbital edema erythema or warmth to suggest periorbital cellulitis, no painful EOMI to suggest orbital cellulitis. Not described as a severe constant boring pain worse at night in the morning, nonradiating, to suggest scleritis. No ciliary flushing or consensual photophobia to suggest uveitis/iritis. No history of penetrating injury or globe rupture additionally no hyphema. No painless acute loss of vision to suggest retinal detachment, vitreous detachment for hemorrhage. patient be discharged home with antibiotic eyedrops, outpatient follow-up with Ophthalmology and strict return precautions. All questions answered. Stable for discharge Differential Diagnosis Differential Diagnoses: The differential diagnosis associated with the presentation includes (See narrative above) External Record Review External record reviewed: Outpatient record Prescription Management I considered prescription management with: Antibiotic Discharge Plan Discharge Clinical Impression: Corneal abrasion Patient Disposition: Home, Self-Care Instructions: Corneal Abrasion (ED) Additional Instructions: on examination today you were found to have a corneal abrasion, a scratch along the surface of the eye was likely sustained from a foreign body has since been removed from the eye. There was no evidence of retained metal or concrete or any other identifiable body on examination. You are being given a prescription for antibiotic drops please complete the entire course. It is very important that you follow-up with an truck driver salesperson, you should contact the office tomorrow morning. I have provided contact information for the truck driver salesperson of his associated with our Hospital. Return to emergency department any new or worsening symptoms or concerns. Prescriptions: New ofloxacin 0.3 % drops 2 drp ophthalmic (eye) QID Qty: 10 0RF Referrals: Jakob Ayala [Physician] - Stand Alone Forms: Work/School Release Interventions: ED Discharge Assessment Last Done: 11/22/24 10:20 Discharge Date/Time: 11/22/24 10:26 Print Language: Estonian
[2024-11-22] MEDS: Tetracaine HCl/PF 0.5% Oph Sol 4 ML DROPS 1 DROP EYE-RIGHT (09:53)
[2024-11-22] MEDS: Fluorescein Sodium STRIP 1 STRIP EYE-RIGHT (09:53)
[2024-11-22 10:20] VITALS: BP 128/62; PULSE 66; RESP 18; TEMP 36.2; O2SAT 97
== END 2024-11-22 10:26 | disposition home or self-care (01) ==
LOC: HO.ED 10:25
PROVIDERS: Emergency Provider Emergency Medicine
DX: S05.01XA Injury of conjunctiva and corneal abrasion without foreign body, right eye, initial encounter (principal); W44.9XXA Unspecified foreign body entering into or through a natural orifice, initial encounter; H57.11 Ocular pain, right eye; Y93.9 Activity, unspecified; Y92.9 Unspecified place or not applicable; Y99.9 Unspecified external cause status
CPT/HCPCS: 99283; 99284

== ENCOUNTER 2025-06-28 13:09 | Outpatient (REF) | payer MEDICAID, OTHER, SELFPAY ==
--- NOTE | ~2025-06-28 | US_ITS ---
EXAMINATION: US SCROTUM HISTORY: 44 year old male with enlarging left scrotal mass. COMPARISON: There are no prior studies available for comparison. FINDINGS: Real-time grayscale ultrasound imaging of the scrotum was performed. RIGHT TESTICLE: The right testis measures 4.7 x 2.5 x 3.0 cm and demonstrates normal homogeneous echotexture. There is microlithiasis. No masses are seen. The right testis appears slightly hypervascular when compared to the left. RIGHT EPIDIDYMIS: Normal in size, shape, and vascularity. LEFT TESTICLE: The left testis measures 4.4 x 2.7 x 2.9 cm and demonstrates normal homogeneous echotexture. There is microlithiasis. No masses are seen. The left testis demonstrates normal color Doppler flow. LEFT EPIDIDYMIS: Normal in size, shape, and vascularity. VARICOCELE: None. HYDROCELE: There is a small right hydrocele and a large left hydrocele. OTHER COMMENTS: None. US/US scrotum IMPRESSION: 1. Small right hydrocele and large left hydrocele. 2. The right testis appears slightly hypervascular when compared to the left which may reflect orchitis. Electronically signed by: Khanh Flores MD 06/28/2025 01:59 PM EST
--- OUTSIDE RECORDS SUMMARY | 2025-06-28 16:33 | XMS_ITS | Encounter Summary ---
Author Organization [employer] Address [address] [place] [address] [address] [place] [address] Care Team Providers Care Pole Shaver Name Role Phone Gracie Pizarro BLISTER PACKAGING MACHINE OPERATOR Primary Care Provider Encounter Details Date Type Department Care Team (Late Contact Info) Description 09/24/2022 Abstract [facility] [address] [place] [address] Doron Lino DDS [address] [place] [address] Social History Tobacco Use Types Packs/Day Years [...] Care Team (Late st Contact Info) Description 10/21/2025 1:30 PM EDT Office Visit [facility] [address] [place] [address] Nallely Clark [address] [place] [address] documented as of this encounter Visit Diagnoses Not on filedocumented in this encounter Care Teams Pole Shaver Relationship Specialty Start Date End Date Gracie Pizarro FNP [address] [place] [address] PCP - General Family Medicine 03/02/22 documented as of this encounter
--- OUTSIDE RECORDS SUMMARY | 2025-06-28 16:33 | XMS_ITS | Clinical Summary ---
Author Organization [employer] Address [address] [place] [address] Care Team Providers Care Negative Assembler Name Role Phone Gracie Pizarro [facility] Primary Care Provider [phone] Allergies No known active allergies Medications Diclofenac Sodium 1 % gel Apply 2 g topically every 6 (six) hours. 1 Active sildenafil (Viagra) 100 MG tabletIndication s:Erectile dysfunction, unspecified erectile dysfunction type Take 1 tablet (100 mg) by mouth if needed each day for erectile dysfunction. 30 tablet 2 4 Active ibuprofen 600 MG tabletIndication s:Chronic pain of right thumb Take 1 tablet (600 mg) by mouth every 6 (six) hours if needed for mild pain. 30 tablet 1 5 Active prednisoLONE acetate (Pred-Forte) 1 % ophthalmic suspensionIndica tions:Foreign body of right cornea, subsequent encounter Administer 1 drop into the right eye 4 times daily. Shake before using 15 mL 5 Active Active Problems Problem Noted Date Diagnosed Date Hyperlipidemia 09/03/2022 Overview (09/03/2022): ASCVD: 2.2% 07/2022, statin therapy not indicated Assessment & Plan (09/03/2022 2:45 PM EST): Encouraged lifestyle recommendations Will continue to monitor Periodontal disease 08/31/2022 Erectile dysfunction 05/02/2021 Overview (09/03/2022): Erectile dysfunction x 1 year; difficulty achieving and sustaining erection during intercourse. Wakes with morning erection. Labs- testosterone, a1c, TSH all WNL Sildenafil 50mg Assessment & Plan (09/03/2022 2:52 PM EST): Continue current sildenafil use Contact HC if sx no longer respond to treatment. Will plan referral to urology at this time Resolved Problems Problem Noted Date Diagnosed Date Resolved Date Dental calculus 08/31/2022 09/03/2022 Gingival bleeding 08/31/2022 09/03/2022 Halitosis 08/31/2022 09/03/2022 Acute gingival inflammation 08/31/2022 09/03/2022 Dental abscess 08/31/2022 09/03/2022 Multiple joint pain 06/21/2022 09/03/19 23 Assessment & Plan (06/21/2022 2:22 PM EST): [...] Encounters Date Type Department Care Team Description 06/21/2025 2:00 PM EST Office Visit [facility] [address] [place] [phone] HayfieldGracie [facility] Healthcare maintenance (Primary Dx); Swelling of scrotum present on examination; Encounter for screening for malignant neoplasm of colon 06/21/2025 Travel 06/11/2025 Patient Outreach [facility] [address] [place] [address] HayfieldGracie [facility] Pre-visit Planning ([facility] screening completed on 10/14/2024) from Last 3 Months Immunizations Immunization Administration Dates Next Due Hep B, adult [...] Date Recorded Patient Health Questionnaire-9 Score 0 10/23/2024 Patient Health Questionnaire-9 Score 0 10/23/2024 Last PHQ-9: Questionnaire Data Not on file 0 10/23/2024 Housing Stability Answer Date Recorded What is [...] Date Recorded Patient Health Questionnaire-2 Score 0 10/23/2024 Internet Access Answer Date Recorded Internet Access Q1 Yes 10/14/2024 Internet Access Q2 Not on file 10/14/2024 Sex and Gender Information Value Date Recorded Sex Assigned at Male 05/07/2022 10:39 AM EDT Legal Sex Male 10:39 AM EDT Gender Identity Male 05/07/2022 10:39 AM EDT Sexual Orientation Straight 05/07/2022 10 :39 AM EDT Last Filed Vital Signs Vital Sign Reading Time Taken Comments Blood Pressure 130/82 06/21/2025 2:00 PM EST Pulse 64 06/21/2025 2:00 PM EST Temperature 36.2 C (97.1 F) 06/21/2025 2:00 PM EST Respiratory Rate 17 06/21/2025 2:00 PM EST Oxygen Saturation 98% 06/21/2025 2:00 PM EST Inhaled Oxygen Concentration - - Weight 77 kg (169 lb 12.8 oz) 06/21/2025 2:00 PM EST Height 155.4 cm (5' 1.2 ) 06/21/2025 2:00 PM EST Body Mass Index 31.87 06/21/2025 2:00 PM EST Plan of Treatment Upcoming Encounters Date Type Department Care Team (Late st Contact Info) Description 10/21/2025 1:30 PM EDT Office Visit [facility] AD[facility]ENT[facility] [address] [place], [place] [phone] Eduardo, Nallely [address] [place] [address] Health Maintenance Due Date Last Done Comments CT Colonography 1979 Colonoscopy 1979 Colorectal Cancer Screening 1979 FIT DNA/Cologuard 1979 FIT 1979 FOBT 1979 Sigmoidoscopy 1979 Disability Screening 1979 Alcohol/Substance Use Screening 1991 Family Planning (PISQ) 12/12/1994 HPV Vaccines (1 - Male 3-dos e series) 12/12/1994 Pneumococcal Vaccine: Pediatrics (0 to 5 Years) and At-Risk Patients (6 to 49) Years (1 of 2 - PCV) 12/12/1998 Dental Oral Exam 02/01/2023 08/03/2022 Dental Prophylaxis 03/01/2023 08/31/2022 Dental X-Ray: Bitewings 08/04/2023 08/03/2022 COVID-19 Vaccine (1 - 2024-2 6 season) 2025 Influenza Vaccine (#1) 2025 Dental X-Ray: Full Mouth 08/04/2025 08/03/2022 SDOH Screening 10/14/2025 10/14/2024 Depression Screening 10/23/2025 10/23/2024, 10/23/2024 Tobacco Screening 06/21/2026 06/21/2025 Lipid Panel 02/17/2029 02/18/2024, 07/18/2022, 05/02/2021 Zoster [...] patient's age to complete this topic Meningococcal B Vaccine Aged Out No l onger eligible based on patient's age to complete [...] Procedure Name Priority Date/Time Associated Diagnosis Comments US SCROTUM Urgent 06/28/2025 1:42 PM EST Swelling of scrotum present on examination HEPATITIS PANEL, GENERAL Routine 02/18/2024 8:12 AM [...] Recently Relevant to Health Maintenance Results * US Scrotum (06/28/2025 1:42 PM EST) Anatomical Region Laterality Modality Body Ultrasound 06/28/2025 1:42 PM EST Narrative 06/28/2025 2:02 PM EST [facility] [address] [place] [address] [place] [address] Ultrasound Report Signed Patient: Ty Henson MR#: [id number] : 1980 Acct:[id number] Age/Sex: 44 / M ADM Date: 06/28/25 Loc: HO.HMGCX Attending Dr: Garcie DUPREE Ordering Physician: Gracie Pizarro Date of Service: 06/28/25 Procedure(s): US scrotum Accession Number(s): [id number] cc: Gracie Pizarro Reason for Exam: 44 year old male with enlarging left scrotal mass EXAMINATION: US SCROTUM HISTORY: 44 year old male with enlarging left scrotal mass. COMPARISON: There are no prior studies available for comparison. FINDINGS: Real-time grayscale ultrasound imaging of the scrotum was performed. RIGHT TESTICLE: The right testis measures 4.7 x 2.5 x 3.0 cm and demonstrates normal homogeneous echotexture. There is microlithiasis. No masses are seen. The right testis appears slightly hypervascular when compared to the left. RIGHT EPIDIDYMIS: Normal in size, shape, and vascularity. LEFT TESTICLE: The left testis measures 4.4 x 2.7 x 2.9 cm and demonstrates normal homogeneous echotexture. There is microlithiasis. No masses are seen. The left testis demonstrates normal color Doppler flow. LEFT EPIDIDYMIS: Normal in size, shape, and vascularity. VARICOCELE: None. HYDROCELE: There is a small right hydrocele and a large left hydrocele. OTHER COMMENTS: None. US/US scrotum IMPRESSION: 1. Small right hydrocele and large left hydrocele. 2. The right testis appears slightly hypervascular when compared to the left which may reflect orchitis. Electronically signed by: Khanh Flores MD 06/28/2025 01:59 PM EST Dictated By: Khanh Flores MD Signed By: <Electronically signed by Khanh Flores MD in OV> 06/28/25 1359 DD/ 1342 TD/TT: 06/28/25 1352 Manager Ent: Procedure Note Donotuseinterpreter, Image - 06/28/2025 [facility] [place] [address] Ultrasound Report Signed Patient: Haley Henson#: [id number] : 1980Acct:[id number] Age/Sex: 44 / MADM Date: 06/28/25 Loc: HO.HMGCX Attending Dr: Gracie Pizarro DISPLAY MAKER Ordering Physician: Gracie Pizarro Date of Service: 06/28/25 Procedure(s): US scrotum Accession Number(s): [id number] cc: Gracie Pizarro Reason for Exam: 44 year old male with enlarging left scrotal mass EXAMINATION: US SCROTUM HISTORY: 44 year old male with enlarging left scrotal mass. COMPARISON: There are no prior studies available for comparison. FINDINGS: Real-time grayscale ultrasound imaging of the scrotum was performed. RIGHT TESTICLE: The right testis measures 4.7 x 2.5 x 3.0 cm and demonstrates normal homogeneous echotexture. There is microlithiasis. No masses are seen. The right testis appears slightly hypervascular when compared to the left. RIGHT EPIDIDYMIS: Normal in size, shape, and vascularity. LEFT TESTICLE: The left testis measures 4.4 x 2.7 x 2.9 cm and demonstrates normal homogeneous echotexture. There is microlithiasis. No masses are seen. The left testis demonstrates normal color Doppler flow. LEFT EPIDIDYMIS: Normal in size, shape, and vascularity. VARICOCELE: None. HYDROCELE: There is a small right hydrocele and a large left hydrocele. OTHER COMMENTS: None. US/US scrotum IMPRESSION: 1. Small right hydrocele and large left hydrocele. 2. The right testis appears slightly hypervascular when compared to the left which may reflect orchitis. Electronically signed by: Khanh Flores MD 06/28/2025 01:59 PM EST Dictated By: Khanh Flores MD Signed By: <Electronically signed by Khanh Flores MD in OV> 06/28/25 1359 DD/ 1342 TD/TT: 06/28/25 1352 Manager Ent: [facility] IMG US PROCEDURES Edited Resu lt - Final * Hepatitis Panel, General (02/18/2024 8:12 AM EDT) Hepatitis A IgM Nonreactive Nonreactive [facility] Comment:IgM antibodies to CHAKRABORTY V not detected; does not exclude earlyacute or recovered HAV infection. ~Hepatitis B Surface Antibody NONREACTIVE Nonreactive [facility] Comment:Nonreactive: < 8.00 mIU/mL Hepatitis B Core Antibody Nonreactive Nonreactive [facility] Hepatitis C Antibody Nonreactive Nonreactive [facility] Comment:Antibodies to HCV no t detected; does not exclude early acuteHCV infection. Hepatitis B Surface Ag Negative Negative [facility] Blood 02/18/2024 8:12 AM EDT 02/18/2024 11:26 AM EDT [facility] LAB BLOOD ORDERABLES Final Re sult [facility] [address] [place] [address] [phone] * (ABNORMAL) Lipid Panel, Standard (02/18/2024 8:02 AM EDT) Triglycerides 174(H) <150 mg/dL [facility] Comment:Desirable Triglyceri de: less than 150 mg/dLBorderline High Triglyceride 150-199 mg/dLHigh Triglyceride: 200-499 mg/dLVery High Triglyceride: greater than or equal to 5OO mg/dL Cholesterol 198 <200 mg/dL [facility] Comment:Desirable Cholestero l: less than 200 mg/dLBorderline High Cholesterol: 200-239 mg/dLHigh Cholesterol: greater than 239 mg/dL LDL Cholesterol Calculated 117(H) <100 mg/dL [facility] Comment:Desirable LDL: less than 100 mg/dLNear Optimal/Above Optimal LDL: 110- 129 mg/dLBorderline High LDL: 130-159 mg/dLHigh LDL: 160-189 mg/dLVery High LDL: greater than or equal to 190 mg/dL HDL Cholesterol 47 >40 mg/dL [facility] Comment:Desirable HDL: great er than 40 mg/dL Note: This HDL assay may give artificially low results in patients with liver disease. Blood Venous blood specimen / Unknown 02/18/2024 8:02 AM EDT 02/18/2024 11:26 AM EDT [facility] LAB BLOOD ORDERABLES Final Re sult [facility] [address] [place] [phone] * HIV 1/2 ANTIGEN/ANTIBODY,FOURTH GENERATION W/RFL (05/02/2021 10:27 AM EDT) HIV-1/2 ANTIGEN AND ANTIBODIES, 4TH GENERATION W/ REFLEX NON-REACT VICKI NON-REACT VICKI [facility] Comment: HIV-1 antigen and HIV-1/HIV-2 antibodies were not detected. There is no laboratory evidence of HIV infection. PLEASE NOTE: This information has been disclosed to you from records whose confidentiality may be protected by state law. If your state requires such protection, then the state law prohibits you from making any further disclosure of the information without the specific written consent of the person to whom it pertains, or as otherwise permitted by law. A general authorization for the release of medical or other information is NOT sufficient for this purpose. For additional information please refer to http://education.[employer].The Society/faq/OIG323 (This link is being provided for informational/ educational purposes only.) The performance of this assay has not been clinically validated in patients less than 2 years old. 05/02/2021 10:2 7 AM EDT us Miroslava Schmitz NP LAB BLOOD ORDERABLES Final Resu lt [facility] [address] from Last 3 Months or Most Recently Relevant to Health Maintenance Insurance [place] D[place]-[facility] MEDICAID LIMITED ADULT DENTAL - [facility] FULL (MEDICAID) Care Teams Negative Assembler Relationship Specialty Start Date End Date Gracie Pizarro FNP [facility] [place] [address] PCP - General Family Medicine 03/02/22
--- OUTSIDE RECORDS SUMMARY | 2025-06-28 16:33 | XMS_ITS | Clinical Summary ---
Author Organization [facility] Address [address] [place] [address] Care Team Providers Care Primer Press Operator Name Role Phone [facility] Primary Care Provider [phone] Allergies No known active allergies Medications No known medications Active Problems No known active problems Social History Tobacco Use Types Packs/Day Years Used Date Smoking Tobacco: Never Assessed Sex and Gender Information Value Date Recorded Sex Assigned at Male 06/23/2024 11:52 AM EST Legal Sex Male 9:46 AM EDT Gender Identity Male 06/23/2024 11:52 AM EST Sexual Orientation Not on file Last Filed Vital Signs Vital Sign Reading Time Taken Comments Blood Pressure 131/74 12/10/2024 1:42 PM EDT Pulse 77 12/10/2024 1:42 PM EDT Temperature - - Respiratory Rate - - Oxygen Saturation - - Inhaled Oxygen Concentration - - Weight 75.8 kg (167 lb) 12/01/2024 1:05 PM EDT Height 157.5 cm (5' 2 ) 12/01/2024 1:05 PM EDT Body Mass Index 30.54 12/01/2024 1:05 PM EDT Plan of Treatment Health Maintenance Due Date Last Done Comments Cologuard 1979 Colon Cancer Screening 1979 Colonoscopy 1979 FOBT / Fit Test 1979 Hepatitis C Screening 1979 Sigmoidoscopy 1979 Varicella Vaccines (1 of 2 - 13+ 2-dose series) 12/12/1992 Diabetes Screening 12/12/2014 Alcohol/Substance Use Screening 07/08/2024 Depression Screening and Follow-Up 07/08/2024 Social Drivers of Health Annual Screening 07/08/2024 Influenza Vaccine (#1) 2025 COVID-19 Vaccine (1 - 2024-2 6 season) 2025 DTaP,Tdap,and Td Vaccines (2 - Td or Tdap) 09/03/2032 09/03/2022 HIV Screening Completed 05/02/2021, 05/02/2021 Hepatitis B Vaccines Completed 10/01/2024, 05/04/2024, 04/02/2024 Pneumococcal Vaccine: Pediatric (0-5 Years) and At-Risk Patients (6-50 Years) Aged Out No longer eligible based on patient's age to complete this topic Insurance [facility] HSNO/FREE CARE Care Teams Primer Press Operator Relationship Specialty Start Date End Date [facility] [address] [place] [phone] PCP - General 11/05/24
--- OUTSIDE RECORDS SUMMARY | 2025-06-28 16:33 | XMS_ITS | Clinical Summary ---
Author Organization [facility] Address [address] [place] [address] Phone Care Team Providers Care Parks And Recreation Manager Name Role Phone Gracie Pizarro LEIA Primary Care Provider Medications prednisoLONE acetate (PRED FORTE) 1 % ophthalmic suspension Place 1 drop into the right eye 2 (two) times a day. 5 mL 01/25/2025 Active Social History Tobacco Use Types Packs/Day Years Used Date Smoking Tobacco: Never Assessed Education Answer Date Recorded Are you interested in more education? Not on amauri e 12/31/2024 Are you concerned about learning? Not on file 12/31/2024 No 12/31/2024 No 12/31/2024 Digital Access Answer Date Recorded No 12/31/2024 No 12/31/2024 Reliable internet access at home? Not on file 12/31/2024 Device with a working camera? Not on file Sex and Gender Information Value Date Recorded Sex Assigned at Male 12/04/2024 10:37 AM EDT Legal Sex Male 10:33 AM EDT Gender Identity Male 12/04/2024 10:37 AM EDT Sexual Orientation Choose not to disclose 2024 10:37 AM EDT Plan of Treatment Health Maintenance Due Date Last Done Comments DEPRESSION SCREENING 1991 SMOKING Hx and SMOKELESS TOB ACCO SCREENING 12/12/1992 HEPATITIS C SCREENING 12/12/1997 HIV ONE-TIME SCREENING (18-6 5 YEARS) 12/12/1997 COLOGUARD 12/12/2024 COLONOSCOPY 12/12/2024 COLORECTAL CANCER SCREENING 12/12/2024 FIT TEST 12/12/2024 FOBT 12/12/2024 SIGMOIDOSCOPY 12/12/2024 VIRTUAL COLONOSCOPY 12/12/2024 INFLUENZA VACCINE (#1) 2025 COVID-19 VACCINE (1 - 2024-2 6 season) 2025 LIPID PANEL 02/17/2029 02/18/2024 Adult Td,Tdap Booster 09/03/2032 09/03/2022 HEPATITIS A VACCINES Aged Out No long er eligible based on patient's age to complete this topic HIB VACCINES Aged Out No longer eligi ble based on patient's age to complete this topic MENINGOCOCCAL VACCINES (ACWY) Aged Out No longer eligible based on patient's age to complete this topic MENINGOCOCCAL VACCINES (B) Aged Out N o longer eligible based on patient's age to complete this topic PNEUMOCOCCAL VACCINES (0-49 years) Aged Out No longer eligible based on patient's age to complete this topic Medical Devices Not on file Insurance [facility] SAFETY NET FULL Member Subscriber Plan / Payer (Ef fective 2024-Present) Name:Ty Henson Relation to Subscriber:Self Name:Ty Henson Payer ID:Not on file Group ID:Not on file Type:Medicaid Address: [address] LIMITED HEALTH SAFETY NET [place]ULL Member Subscriber Plan / Payer (Ef fective 2024-Present) Name:Ty Henson Relation to Subscriber:Self Name:Ty Henson Payer ID:Not on file Group ID:Not on file Type:Medicaid Address: [address] LIMITED HE[employer] SAFETY NET FULL Member Subscriber Plan / Payer (Ef fective 2024-Present) Name:Ty Henson Relation to Subscriber:Self Name:Ty Henson Payer ID:Not on file Group ID:Not on file Type:Medicaid Address: [address] LIMITED [facility] SAFETY NET FULL [facility] LIMITED Care Teams Parks And Recreation Manager Relationship Specialty Start Date End Date Gracie Pizarro FNP [address] [place] [phone] PCP - General Nurse Practitioner 12/04/24 Additional Source Comments The information contained in this document represents components of the legal health record. It is not the complete legal health record.[facility]
== END 2025-06-28 13:10 | disposition home or self-care (01) ==
LOC: HO.HMGCX 13:09
PROVIDERS: Visit Provider Registered Nurse
DX: N50.89 Other specified disorders of the male genital organs (principal)
CPT/HCPCS: 76870

== ENCOUNTER → 2025-06-28 13:31 | Outpatient (BNV) | payer MEDICAID, SELFPAY | PROVIDERS: Visit Provider Radiology Diagnostic Radiology | DX: N50.89 Other specified disorders of the male genital organs (principal) | CPT/HCPCS: 76870 ==